=== PATIENT | female | born 1940 | race Caucasian/White ===

== ENCOUNTER 2018-07-22 07:20 | Emergency (ER) | payer MEDICARE, OTHER ==
[2018-07-22 07:31] VITALS: BP 139/75
[2018-07-22] MEDS ORDERED: Ketorolac 30 MG/ML SDV IVPUSH ONE (08:08)
--- NOTE | 2018-07-22 08:33 | EDM.PDOC ---
ED HPI GENERAL MEDICAL PROBLEM - General Chief Complaint: General Stated Complaint: R FLANK PAIN Time Seen by Provider: 07/22/18 08:06 Source of Information: Reports: Patient History Limitations: Reports: No Limitations - History of Present Illness INITIAL COMMENTS - FREE TEXT/NARRATIVE: Patient is a 78-year-old female who presents to the emergency department this morning with a complaint of right flank pain. Patient states pain began about 2 days ago, and worsen today. Patient doesn't believe that she overexert herself. However, when she was sweeping the floor yesterday developed more pain in the right flank area. Patient denies dysuria, vaginal bleeding or discharge, bowel changes, nausea, vomiting, any specific trauma, chest pain, shortness of breath, abdominal pain, lower extremity edema. Onset: Gradual Duration: Day(s): Location: Reports: Other (right flank) Quality: Reports: Ache Severity: Mild Improves with: Reports: None Worsens with: Reports: None Associated Symptoms: Reports: No Other Symptoms Right Upper Abdomen Pain Score (Numeric/FACES): 8 - Related Data Allergies Allergy/AdvReac Type Severity Reaction Status Date / Time Penicillins Allergy UNKNOWN Verified 07/22/18 07:32 pollen extracts Allergy UNKNOWN Verified 07/22/18 07:32 ragweed pollen Allergy UNKNOWN Verified 07/22/18 07:32 Home Meds: Home Meds Aspirin [Halfprin] 81 mg PO BRK 05/12/15 [History] Cetirizine HCl [Allergy] 10 mg PO DAILY 05/12/15 [History] Vit No.130/Iron/FA [ Vitamins] 1 each PO DAILY 05/12/15 [ History] Cephalexin [Keflex] 500 mg PO TID #15 capsule 07/22/18 [Rx] Past Medical History HEENT History: Reports: Cataract Cardiovascular History: Reports: Arrhythmia Respiratory History: Reports: Pneumonia, Recurrent Gastrointestinal History: Reports: Hemorrhoids Genitourinary History: Reports: None 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: Musculoskeletal History: Reports: Back Pain, Chronic, Fracture Neurological History: Reports: None Psychiatric History: Reports: None Endocrine/Metabolic History: Reports: Hyperthyroidism Hematologic History: Reports: Anemia Immunologic History: Reports: None Oncologic (Cancer) History: Reports: None Dermatologic History: Reports: None - Infectious Disease History Infectious Disease History: Reports: Chicken Pox, Measles, Mumps, Rubella - Past Surgical History HEENT Surgical History: Reports: Cataract Surgery Neurological Surgical History: Reports: Lumbar Spine, Other (See Below) Social & Family History - Family History Cardiac: Reports: Hypertension Neurological: Reports: CVA - Tobacco Use Smoking Status *Q: Never Smoker Second Hand Smoke Exposure: No - Caffeine Use Caffeine Use: Reports: Coffee, Soda, Tea - Recreational Drug Use Recreational Drug Use: No ED ROS GENERAL - Review of Systems Review Of Systems: ROS reveals no pertinent complaints other than HPI. Constitutional: Reports: No Symptoms HEENT: Reports: No Symptoms Respiratory: Reports: No Symptoms Cardiovascular: Reports: No Symptoms Endocrine: Reports: No Symptoms GI/Abdominal: Reports: No Symptoms : Reports: Flank Pain (right) Musculoskeletal: Reports: No Symptoms Skin: Reports: No Symptoms Neurological: Reports: No Symptoms Psychiatric: Reports: No Symptoms Hematologic/Lymphatic: Reports: No Symptoms Immunologic: Reports: No Symptoms ED EXAM, GENERAL - Physical Exam Exam: See Below Exam Limited By: No Limitations General Appearance: Alert, WD/WN, No Apparent Distress Throat/Mouth: Normal Inspection, Normal Oropharynx, No Airway Compromise Head: Atraumatic, Normocephalic Neck: Normal Inspection, Supple, Non-Tender, Full Range of Motion Respiratory/Chest: No Respiratory Distress, Lungs Clear, Normal Breath Sounds, No Accessory Muscle Use, Chest Non-Tender Cardiovascular: Regular Rate, Rhythm, No Murmur GI/Abdominal: Normal Bowel Sounds, Soft, Non-Tender, No Organomegaly, No Distention, No Abnormal Bruit, No Mass Back Exam: CVA Tenderness (R), Other (Right mid axilla costochondral tenderness to palpation. No rib displacement, edema, ecchymosis noted) Extremities: Normal Inspection, Normal Range of Motion, No Pedal Edema Neurological: Alert, Oriented, Normal Cognition Psychiatric: Normal Affect, Normal Mood Skin Exam: Warm, Dry, Intact, Normal Color, No Rash Lymphatic: No Adenopathy Course - Vital Signs Last Recorded V/S: Last Vital Signs Temp 97.3 F 07/22/18 07:25 Pulse 64 07/22/18 07:25 Resp 20 07/22/18 07:25 BP 139/75 07/22/18 07:25 Pulse Ox 98 07/22/18 07:25 - Orders/Labs/Meds Orders: Active Orders 24 hr Category Date Time Status Abdomen Pelvis wo Cont [CT] Stat Exams 07/22/18 08:07 Ordered CULTURE URINE [RM] Stat Lab 07/22/18 08:17 Received Labs: Laboratory Tests 07/22/18 07/22/18 07/22/18 Range/Units 07:40 07:40 08:17 WBC 5.21 (5.00-10.00) 10^3/uL RBC 3.76 L (3.80-5.50) 10^6/uL Hgb 12.2 (12.0-16.0) g/dL Hct 35.0 L (37.0-47.0) % MCV 93.1 H (82.0-92.0) fL MCH 32.4 H (27.0-31.0) pg MCHC 34.9 (32.0-36.0) g/dL RDW 12.3 (11.5-14.5) % Plt Count 145 L (150-400) 10^3/uL MPV 11.4 H (7.4-10.4) fL Immature Gran % (Auto) 0.0 (0.0-5.0) % Neut % (Auto) 54.1 (50.0-70.0) % Lymph % (Auto) 33.8 (20.0-40.0) % [place] % (Auto) 7.3 (2.0-8.0) % Eos % (Auto) 4.2 H (1.0-3.0) % Baso % (Auto) 0.6 (0.0-1.0) % Immature Gran # (Auto) 0.00 (0.00-0.50) 10^3/uL Neut # (Auto) 2.82 (2.50-7.00) 10^3/uL Lymph # (Auto) 1.76 (1.00-4.00) 10^3/uL [place] # (Auto) 0.38 (0.10-0.80) 10^3/uL Eos # (Auto) 0.22 (0.10-0.30) 10^3/uL Baso # (Auto) 0.03 (0.00-0.10) 10^3/uL Sodium 144 (136-145) mmol/L Potassium 3.8 (3.3-5.3) mmol/L Chloride 106 (98-115) mmol/L Carbon Dioxide 27.8 (21.0-32.0) mmol/L Anion Gap 14.0 (5-15) mmol/L BUN 20 (6-25) mg/dL Creatinine 0.99 (0.51-1.17) mg/dL Est Cr Clr Drug Dosing 43.84 mL/min Estimated GFR (MDRD) 54 mL/min Glucose 91 (75 - 99) mg/dL Calcium 9.1 (8.7-10.3) mg/dL Total Bilirubin 0.5 (0.2-1.0) mg/dL AST 32 (15-37) U/L ALT 21 (12-78) U/L Alkaline Phosphatase 81 (46-116) IU/L Total Protein 7.6 (6.4-8.2) g/dL Albumin 3.98 (3.00-4.80) g/dL Lipase 150 (73-393) U/L Specimen Type Urincc Urine Color Light yellow (YELLOW) Urine Appearance Clear (CLEAR) Urine pH 7.0 (5.0-9.0) Ur Specific [place] 1.010 (1.005-1.030) Urine Protein Negative (NEGATIVE) mg/dL Urine Glucose (UA) Negative (NEGATIVE) mg/dL Urine Ketones Negative (NEGATIVE) mg/dL Urine Occult Blood Trace-intact H (NEGATIVE) Urine Nitrite Negative (NEGATIVE) Urine Bilirubin Negative (NEGATIVE) Urine Urobilinogen 0.2 (0.2-1.0) E.U./dL Ur Leukocyte Esterase Small H (NEGATIVE) Urine RBC 0-5 (0-5) /HPF Urine WBC 0-5 (0-5) /HPF Ur Epithelial Cells Occasional /LPF Urine Bacteria Occasional (NONE TO FEW) /HPF Meds: Medications Discontinued Medications Generic Name Dose Route Start Last Admin Trade Name Freq PRN Reason Stop Dose Admin Ketorolac Tromethamine 30 mg 07/22/18 08:08 07/22/18 08:18 Toradol IVPUSH 07/22/18 08:09 30 mg ONETIME ONE Administration - Re-Assessments/Exams Free Text/Narrative Re-Assessment/Exam: 07/22/18 08:53 Patient afebrile, vital signs stable, pain resolved. Discussed in length with daughter and patient and they would request no CAT scan done. Based on within normal limits lab values and only suspected UTI, CT will be held and patient will follow-up with Dr. Alcantara. Departure - Departure Time of Disposition: 08:55 Disposition: Home, Self-Care 01 Condition: Good Clinical Impression: UTI, Urinary tract infectious disease, Costochondritis, acute - Discharge Information Prescriptions: Cephalexin [Keflex] 500 mg PO TID #15 capsule Instructions: Costochondritis, [id number], Chest Wall Pain, [id number], Urinary Tract Infection, Adult, [id number] Referrals: Maki Martino MD [Primary Care Provider] - Forms: ED Department Discharge Additional Instructions: Follow-up with Dr. Alcantara in next 2-3 days. Return to emergency department sooner if symptoms continue or worsen. - My Orders Last 24 Hours: My Active Orders 07/22/18 08:07 Abdomen Pelvis wo Cont [CT] Stat 07/22/18 08:17 CULTURE URINE [RM] Stat - Assessment/Plan Last 24 Hours: My Active Orders 07/22/18 08:07 Abdomen Pelvis wo Cont [CT] Stat 07/22/18 08:17 CULTURE URINE [RM] Stat
== END 2018-07-22 09:10 | disposition home or self-care (01) ==
LOC: KA.ED 07:20
DX: N39.0 Urinary tract infection, site not specified (principal); M94.0 Chondrocostal junction syndrome [Tietze]; Z88.2 Allergy status to sulfonamides; Z91.048 Other nonmedicinal substance allergy status; Z79.899 Other long term (current) drug therapy
CPT/HCPCS: 80053; 81001; 83690; 85025; 87086; 96374; 99284-25; J1885

== ENCOUNTER 2019-10-12 19:46 | Emergency (ER) | payer MEDICARE, OTHER ==
[2019-10-12 19:59] VITALS: BP 149/53; PULSE 82
--- NOTE | 2019-10-12 20:22 | EDM.PDOC ---
ED HPI GENERAL MEDICAL PROBLEM - General Chief Complaint: General Stated Complaint: fall Time Seen by Provider: 10/12/19 20:12 Source of Information: Reports: Patient History Limitations: Reports: No Limitations - History of Present Illness INITIAL COMMENTS - FREE TEXT/NARRATIVE: Patient is a 79-year-old female who presents the emergency department via private vehicle this evening with a complaint of right knee pain. Patient states that she tripped and landed on right knee from a standing position. Patient denies dizziness prior to event, head injury or syncopal episode f ollowing fall. Patient denies any other injury or pain. Onset: Today Onset Time: 18:00 Duration: Hour(s): Location: Reports: Lower Extremity, Right Quality: Reports: Ache Severity: Mild Improves with: Reports: None Worsens with: Reports: Movement Context: Reports: Other (fall) Associated Symptoms: Reports: No Other Symptoms Right Knee Pain Score (Numeric/FACES): 2 - Related Data Allergies Allergy/AdvReac Type Severity Reaction Status Date / Time Penicillins Allergy UNKNOWN Verified 10/12/19 20:11 pollen extracts Allergy UNKNOWN Verified 10/12/19 20:11 ragweed pollen Allergy UNKNOWN Verified 10/12/19 20:11 Home Meds: Home Meds Aspirin [Halfprin] 81 mg PO BRK 05/12/15 [History] Cetirizine HCl [Allergy] 10 mg PO DAILY 05/12/15 [History] Vit No.130/Iron/Folic [ Vitamins] 1 each PO DAILY 05/12/15 [History] cephALEXin [Keflex] 500 mg PO TID #15 capsule 07/22/18 [Rx] Past Medical History HEENT History: Reports: Cataract Cardiovascular History: Reports: Arrhythmia Respiratory History: Reports: Pneumonia, Recurrent Gastrointestinal History: Reports: Hemorrhoids Genitourinary History: Reports: None 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: Musculoskeletal History: Reports: Back Pain, Chronic, Fracture Neurological History: Reports: None Psychiatric History: Reports: None Endocrine/Metabolic History: Reports: Hyperthyroidism Hematologic History: Reports: Anemia Immunologic History: Reports: None Oncologic (Cancer) History: Reports: None Dermatologic History: Reports: None - Infectious Disease History Infectious Disease History: Reports: Chicken Pox, Measles, Mumps, Rubella - Past Surgical History HEENT Surgical History: Reports: Cataract Surgery Neurological Surgical History: Reports: Lumbar Spine, Other (See Below) Social & Family History - Family History Cardiac: Reports: Hypertension Neurological: Reports: CVA - Tobacco Use Smoking Status *Q: Never Smoker Second Hand Smoke Exposure: No - Caffeine Use Caffeine Use: Reports: Coffee, Tea - Recreational Drug Use Recreational Drug Use: No ED ROS GENERAL - Review of Systems Review Of Systems: Comprehensive ROS is negative, except as noted in HPI. Constitutional: Reports: No Symptoms HEENT: Reports: No Symptoms Respiratory: Reports: No Symptoms Cardiovascular: Reports: No Symptoms Endocrine: Reports: No Symptoms GI/Abdominal: Reports: No Symptoms : Reports: No Symptoms Musculoskeletal: Reports: Leg Pain (right knee) Skin: Reports: No Symptoms Neurological: Reports: No Symptoms Psychiatric: Reports: No Symptoms Hematologic/Lymphatic: Reports: No Symptoms Immunologic: Reports: No Symptoms ED EXAM, GENERAL - Physical Exam Exam: See Below Exam Limited By: No Limitations General Appearance: Alert, WD/WN, No Apparent Distress Throat/Mouth: Normal Inspection, Normal Oropharynx, No Airway Compromise Respiratory/Chest: No Respiratory Distress Back Exam: Normal Inspection Extremities: No Pedal Edema, Leg Pain (right knee infrapatella tenderness to palp and rom, no ecchymosis, crepitus, erythema) Neurological: Alert, Oriented, Normal Cognition Psychiatric: Normal Affect, Normal Mood Skin Exam: Warm, Dry, Intact, Normal Color, No Rash Course - Vital Signs Last Recorded V/S: Last Vital Signs Temp 97 F 10/12/19 19:54 Pulse 82 10/12/19 19:54 Resp 20 10/12/19 19:54 BP 149/53 H 10/12/19 19:54 Pulse Ox 98 10/12/19 19:54 - Orders/Labs/Meds Orders: Active Orders 24 hr Category Date Time Status Knee 3V Rt [CR] Stat Exams 10/12/19 19:59 Ordered - Radiology Interpretation Free Text/Narrative:: Right knee x-ray shows no acute fracture or dislocation - Re-Assessments/Exams Free Text/Narrative Re-Assessment/Exam: 10/12/19 20:51 Patient afebrile, vital signs stable, pain controlled. Patient will follow-up with PCP. Departure - Departure Time of Disposition: 20:51 Disposition: Home, Self-Care 01 Condition: Good Clinical Impression: Knee contusion Qualifiers: Encounter type: initial encounter Laterality: right Qualified Code(s): S80.01XA - Contusion of right knee, initial encounter Right knee sprain Qualifiers: Involved ligament of knee: unspecified ligament - Discharge Information Instructions: How to Use Cold Therapy, [id number], Contusion, [id number], Knee Sprain, Adult, [id number] Additional Instructions: Follow-up with PCP in 2 days. Return to emergency department sooner if symptoms continue or worsen. Sepsis Event Note (ED) - Evaluation Sepsis Screening Result: No Definite Risk - Focused Exam Vital Signs: Vital Signs Temp Pulse Resp BP Pulse Ox 10/12/19 19:54 97 F 82 20 149/53 H 98 - My Orders Last 24 Hours: My Active Orders 10/12/19 19:59 Knee 3V Rt [CR] Stat - Assessment/Plan Last 24 Hours: My Active Orders 10/12/19 19:59 Knee 3V Rt [CR] Stat Assessment:: Knee contusion Plan: Follow-up with PCP
--- NOTE | 2019-10-12 20:43 | CR ---
[id number] RAD/RAD Knee Right 3V Exam: RAD Knee Right 3V Indication:FALL Comparison: No prior imaging for comparison. Discussion: Knee joint effusion. 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 Diffuse bone demineralization. Mild quadriceps enthesopathy at its patellar attachment. Impression: Negative for fracture or dislocation. Joint effusion. Osteoarthritis. Festus Donohue MD 10/12/198 Thank you for allowing us to participate in the care of your patient.
== END 2019-10-12 21:15 | disposition home or self-care (01) ==
LOC: KA.ED 19:46
DX: S83.91XA Sprain of unspecified site of right knee, initial encounter (principal); Z91.048 Other nonmedicinal substance allergy status; Z79.82 Long term (current) use of aspirin; Z88.0 Allergy status to penicillin; W01.0XXA Fall on same level from slipping, tripping and stumbling without subsequent striking against object, initial encounter
CPT/HCPCS: 73562-RT; 99283

== ENCOUNTER 2023-05-03 17:12 | Emergency (ER) | payer MEDICARE, OTHER ==
[2023-05-03] MEDS ORDERED: Sodium Chloride 0.9% 10 ML Syringe FLUSH PRN (17:15)
[2023-05-03 17:24] LABS: BASOPHILS ABSOLUTE AUTO 0.02 10^3/uL (0.00-0.10); BASOPHILS PERCENT AUTO 0.3 % (0.0-1.0); EOSINOPHILS ABSOLUTE AUTO 0.12 10^3/uL (0.10-0.30); EOSINOPHILS PERCENT AUTO 1.8 % (1.0-3.0); HEMATOCRIT 38.3 % (37.0-47.0); HEMOGLOBIN 12.9 g/dL (12.0-16.0); IMMATURE GRAN ABSOLUTE AUTO 0.01 10^3/uL (0.00-0.50); IMMATURE GRAN PERCENT AUTO 0.2 % (0.0-5.0); LYMPHOCYTES ABSOLUTE AUTO 1.11 10^3/uL (1.00-4.00); LYMPHOCYTES PERCENT AUTO 16.9 % (20.0-40.0); MEAN CORPUSCULAR HEMOGLOBIN 31.6 pg (27.0-31.0); MEAN CORPUSCULAR HGB CONC 33.7 g/dL (32.0-36.0); MEAN CORPUSCULAR VOLUME 93.9 fL (82.0-92.0); MEAN PLATELET VOLUME 10.9 fL (7.4-10.4); MONOCYTES ABSOLUTE AUTO 0.54 10^3/uL (0.10-0.80); MONOCYTES PERCENT AUTO 8.2 % (2.0-8.0); NEUTROPHILS ABSOLUTE AUTO 4.78 10^3/uL (2.50-7.00); NEUTROPHILS PERCENT AUTO 72.6 % (50.0-70.0); PLATELET COUNT,PLT 144 10^3/uL (150-400); RED BLOOD CELL COUNT 4.08 10^6/uL (3.80-5.50); RED CELL DISTRIBUTION WIDTH 12.3 % (11.5-14.5); WHITE BLOOD CELL COUNT,WBC 6.58 10^3/uL (5.00-10.00)
[2023-05-03 17:42] LABS: ALBUMIN 3.96 g/dL (3.40-5.00); ANION GAP 13.7 mmol/L (5-15); BILIRUBIN TOTAL 0.6 mg/dL (0.2-1.0); CALCIUM 9.5 mg/dL (8.7-10.3); CARBON DIOXIDE,CO2 28.5 mmol/L (21.0-32.0); CREATININE 1.12 mg/dL (0.51-1.17); EST CRCL DRUG DOSING (CG) 36.32 mL/min; POTASSIUM,K 4.2 mmol/L (3.5-5.1); PROTEIN TOTAL,TP 7.4 g/dL (6.4-8.2)
[2023-05-03] MEDS ORDERED: Sodium Chloride 0.9% 1,000 ML IV ONE (18:07)
[2023-05-03 18:09] LABS: PROTHROMBIN TIME 10.4 SEC (9.2-11.2); PTT,PARTIAL THROMBOPLSTIN TIME 24.7 SEC (22.8-31.4)
[2023-05-03] MEDS ORDERED: Labetalol 100 MG/20 ML MDV IVPUSH ONE (18:09)
[2023-05-03 18:30] LABS: APPEARANCE,URINE CLEAR (CLEAR); BILIRUBIN,URINE SMALL (NEGATIVE); COLOR,URINE DARK YELLOW (YELLOW); GLUCOSE,URINE NEGATIVE (NEGATIVE); KETONES,URINE NEGATIVE (NEGATIVE); LEUKOCYTE ESTERASE,URINE NEGATIVE (NEGATIVE); NITRITE,URINE NEGATIVE (NEGATIVE); OCCULT BLOOD,URINE NEGATIVE (NEGATIVE); PH,URINE 5.5 (5.0-9.0); PROTEIN,URINE 30 mg/dL (NEGATIVE); UROBILINOGEN,URINE 0.2 E.U./dL (0.2-1.0)
[2023-05-03 18:31] LABS: BACTERIA,URINE OCCASIONAL /HPF (NONE TO FEW); EPITHELIAL CELLS,URINE RARE /LPF; MUCUS,URINE RARE /LPF (NEGATIVE); RBC,URINE 0-5 /HPF (0-5); WBC,URINE 0-5 /HPF (0-5)
[2023-05-03 18:46] VITALS: BP 165/82; PULSE 74
== END 2023-05-03 19:25 ==
LOC: KA.ED 17:12
DX: R41.0 Disorientation, unspecified (principal); R53.1 Weakness; Z88.0 Allergy status to penicillin; Z91.048 Other nonmedicinal substance allergy status
CPT/HCPCS: 36415; 70450; 71045; 80053; 81001; 82140; 84484; 85025; 85610; 85730; 93005; 93010; 96361; 96374; 99284; 99291-25; C1758; J1921; J7030; Q3014

== ENCOUNTER 2024-09-09 17:54 | Emergency (ER) | payer MEDICARE, OTHER ==
[2024-09-09] MEDS: Ondansetron 4 MG/2 ML SDV IVPUSH ONE (18:15)
[2024-09-09] MEDS: Sodium Chloride 0.9% 10 ML Syringe FLUSH PRN (18:20)
[2024-09-09 18:21] LABS: BASOPHILS ABSOLUTE AUTO 0.04 10^3/uL (0.00-0.10); BASOPHILS PERCENT AUTO 0.4 % (0.0-1.0); EOSINOPHILS ABSOLUTE AUTO 0.36 10^3/uL (0.10-0.30); EOSINOPHILS PERCENT AUTO 3.6 % (1.0-3.0); HEMOGLOBIN 10.8 g/dL (12.0-16.0); IMMATURE GRAN ABSOLUTE AUTO 0.06 10^3/uL (0.00-0.04); IMMATURE GRAN PERCENT AUTO 0.6 % (0.0-0.4); LYMPHOCYTES ABSOLUTE AUTO 2.96 10^3/uL (1.00-4.00); LYMPHOCYTES PERCENT AUTO 29.3 % (20.0-40.0); MEAN CORPUSCULAR HEMOGLOBIN 31.7 pg (27.0-31.0); MEAN CORPUSCULAR HGB CONC 33.8 g/dL (32.0-36.0); MEAN CORPUSCULAR VOLUME 93.8 fL (82.0-92.0); MEAN PLATELET VOLUME 11.3 fL (7.4-10.4); MONOCYTES ABSOLUTE AUTO 0.69 10^3/uL (0.10-0.80); MONOCYTES PERCENT AUTO 6.8 % (2.0-8.0); NEUTROPHILS ABSOLUTE AUTO 5.98 10^3/uL (2.50-7.00); NEUTROPHILS PERCENT AUTO 59.3 % (50.0-70.0); PLATELET COUNT,PLT 190 10^3/uL (150-400); RED BLOOD CELL COUNT 3.41 10^6/uL (3.80-5.50); RED CELL DISTRIBUTION WIDTH 11.9 % (11.5-14.5); WHITE BLOOD CELL COUNT,WBC 10.09 10^3/uL (5.00-10.00)
[2024-09-09 18:41] LABS: ALANINE AMINOTRANSFERASE,ALT 21 U/L (14-63); ALBUMIN 3.29 g/dL (3.40-5.00); ALKALINE PHOSPHATASE 89 U/L (46-116); ANION GAP 14.1 mmol/L (5-15); ASPARTATE AMNIOTRANSFERASE,AST 22 U/L (15-37); BILIRUBIN TOTAL 0.4 mg/dL (0.2-1.0); BLOOD UREA NITROGEN,BUN 20 mg/dL (7-18); CALCIUM 8.6 mg/dL (8.7-10.3); CARBON DIOXIDE,CO2 25.5 mmol/L (21.0-32.0); CHLORIDE,CL 103 mmol/L (98-107); CREATININE 1.17 mg/dL (0.51-1.17); ESTIMATED GFR 46 mL/min (>=60); GLUCOSE RANDOM 169 mg/dL (70-140); POTASSIUM,K 3.6 mmol/L (3.5-5.1); PROTEIN TOTAL,TP 6.7 g/dL (6.4-8.2); SODIUM,NA 139 mmol/L (136-145)
[2024-09-09 20:45] VITALS: BP 157/80; PULSE 96
== END 2024-09-09 19:55 ==
LOC: KA.ED 17:54
DX: S72.002A Fracture of unspecified part of neck of left femur, initial encounter for closed fracture (principal); Z88.0 Allergy status to penicillin; Z79.899 Other long term (current) drug therapy; X58.XXXA Exposure to other specified factors, initial encounter
CPT/HCPCS: 36415; 51702; 80053; 84484; 85025; 96374; 99285-25; J2405